=== PATIENT | female | born 2000 | race Hispanic/Latino ===

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

== ENCOUNTER 2024-07-24 19:10 | Inpatient (IN) | payer SELFPAY ==
[~2024-07-24] VITALS: Ht 167.6 cm; Wt 43.5 kg
[~2024-07-24 19:10] MED LIST: CEPH500B PO; ONDA-243 PO
[2024-07-24 19:39] LABS: APPEARANCE,URINE CLEAR (CLEAR); BILIRUBIN,URINE NEGATIVE (NEGATIVE); COLOR,URINE YELLOW (YELLOW); GLUCOSE, URINE (UA) NEGATIVE (NEGATIVE); KETONES,URINE 40 mg/dL (NEGATIVE); LEUKOCYTE ESTERASE ,URINE NEGATIVE Leu/uL (NEGATIVE); NITRATE,URINE NEGATIVE (NEGATIVE); PH,URINE 5.5 (5.0-8.0); PROTEIN,URINE 20 mg/dL (NEGATIVE); UROBILINOGEN,URINE 0.2 mg/dL (0.2-1.0)
[2024-07-24 19:48] LABS: BASOPHILS # (AUTO) 0.04 K/uL (0.00-0.20); BASOPHILS % (AUTO) 0.2 % (0.0-5.0); HEMATOCRIT 35.8 % (36-48); IMMATURE GRANULOCYTE ABSOLUTE 0.06 K/uL (0-1); LYMPHOCYTES # (AUTO) 1.1 K/uL (1.0-4.8); LYMPHOCYTES % (AUTO) 6.2 % (21.0-51.0); MEAN CORPUSCULAR HEMOGLOBIN 32.1 pg (27.0-33.0); MEAN CORPUSCULAR HGB CONC 34.9 g/dL (32.0-36.0); MEAN CORPUSCULAR VOLUME 91.8 fL (79-99); MONOCYTES # (AUTO) 0.6 K/uL (0.1-1.0); MONOCYTES % (AUTO) 3.5 % (3.0-13.0); NEUTROPHILS # (AUTO) 15.3 K/uL (1.8-7.7); NEUTROPHILS % (AUTO) 89.7 % (40.0-77.0); PLATELET COUNT (AUTO) 284 K/uL (130-400); RED CELL DISTRIBUTION WIDTH 11.7 % (11.0-15.5)
[2024-07-24 19:55] LABS: ADD UA MICROSCOPIC YES
[2024-07-24] MEDS: ondanSETRON 4MG INJ IVP ONE (20:00)
[2024-07-24] MEDS: morPHINE 4 MG SYG IVP ONE (20:00)
[2024-07-24] MEDS: 0.9%NACL 1000ML 1,000 ML IV ONE (20:09)
[2024-07-24 20:14] LABS: CREATININE 0.6 mg/dL (0.5-1.0); POTASSIUM 3.5 mmol/L (3.5-5.1)
[2024-07-24 20:40] LABS: ALBUMIN 4.2 g/dL (3.5-5.0); BILIRUBIN,DIRECT 0.1 mg/dL (0.0-0.3); BILIRUBIN,TOTAL 0.5 mg/dL (0.2-1.0); TOTAL PROTEIN, SERUM 7.8 g/dL (6.0-8.3)
[2024-07-24 20:51] LABS: BACTERIA,URINE RARE /HPF (None Seen); MUCUS,URINE MANY LPF (None Seen); RBC,URINE 26-50 /HPF (0-1); SQUAMOUS EPITHELIAL CELL,UR RARE /HPF (0-2)
--- NOTE | 2024-07-24 21:04 | ERN ---
ED Note History of Present Illness Stated Complaint: C/O ABD PAIN WITH N X V ONSET THIS AM Chief Complaint: Abdominal Pain Time Seen by MD: 19:13 Time Seen by Midlevel: 19:13 Dictation: The patient is a 24-year-old female with no past medical history who presents to the emergency department with complaints of nonbloody vomiting, diarrhea, nausea onset 11:00 a.m.. Patient also reports periumbilical abdominal pain, denies any fever. Allergies: Coded Allergies: No Known Allergies (Unverified Allergy, Unknown, 09/23/21) Home Meds Active Scripts Ondansetron (Ondansetron Odt) 4 Mg Tab.rapdis, 4 MG PO TID for n/v for 5 Days, #15 TAB Prov:JUAN ISSA HEAD REFRIGERATION ENGINEER 09/23/21 Cephalexin Monohydrate (Keflex) 500 Mg Cap, 500 MG PO BID for uti for 10 Days, #20 CAP Prov:JUAN ISSA HEAD REFRIGERATION ENGINEER 09/23/21 Past Medical History Past Medical History: No Pertinent History Additional Past Medical Hx: PANIC ATTACKS, HYPERVENTILATION Surgical History: None RN Note Reviewed/Agreed w/PFSH: Yes Review of System Dictation Constitutional: Negative for fever,chills, and weight loss Eyes: Negative for injury, pain,redness, and discharge ENT: Negative for injury,pain or swelling Cardiovascular: Negative for chest pain, palpitations, and edema Respiratory: Negative for shortness of breath, cough, and wheezing, Abdomen/GI: Negative for constipation. Positive for abdominal pain, nausea, vomiting, diarrhea Back: Negative for injury and pain : Negative for injury, bleeding and discharge MS/Extremity: Negative for injury and deformity Skin: Negative for rash, and discoloration Neuro: Negative for headache, weakness, numbness, tingling, and seizure Psych: Negative for suicide ideation, homicidal ideation, and hallucinations Initial Vital Sign VS Vital Signs Date Time Temp Pulse Resp B/P (MAP) Pulse Ox O2 Delivery O2 Flow Rate FiO2 07/24/24 19:14 97.7 89 18 102/65 100 Room Air 07/24/24 19:45 0 21 Physical Exam Dictation Vital Signs reviewed General Appearance: Alert, oriented x 3, no acute distress, well developed, nourished. Head and Face: non-traumatic. Eyes: PERRL, pink conjunctivas, eyelid no trauma, anterior chamber with arcus senilis. Ears: Pinnas intact and no signs of trauma or erythema ear canals clear and no discharge TM no erythema Nose: No discharge, no bleeding. Oropharynx: Mouth normal, tongue pink. pharynx clear,no erythema, tonsils no exudates, no abscesses noted, mucous membrane moist Neck: Supple, non-tender, no thyromegaly, no masses, no JVD, no bruits Breast:Deferred Chest:No tenderness, no crepitus, no paradoxical movement, no retractions Lungs:Clear, well-ventilated, symmetric, no rales, no wheezing, no rhonchi, no stridor, good breath sounds bilaterally Heart: Regular rate, regular rhythm, no murmur, no gallops Vascular: no peripheral edema, Abdomen: Soft, positive bowel sounds, nondistended, no guarding, Tenderness to right lower quadrant, no rebound, no masses no hepatomegaly, no splenomegaly, no Simms's sign, no hernias. Rectal: Deferred Genital: Deferred Neurological: Normal speech, motor function intact, sensory function intact Musculoskeletal: Neck nontender, full range of motion, back nontender, full range of motion, Extremities: nontender, full range of motion Skin: Color pink, dry, no turgor, no rash, no lacerations, no abrasions, no contusions. Lymphatic: Deferred Results (Laboratory/Radiology) Laboratory/Radiology Laboratory Tests Test 07/24/24 19:17 07/24/24 19:39 07/24/24 19:57 Urine Color YELLOW (YELLOW) Urine Appearance CLEAR (CLEAR) Urine pH 5.5 (5.0-8.0) Urine Specific [place] 1.031 (1.001-1.031) Urine Protein 20 mg/dL (NEGATIVE) H Urine Glucose (UA) NEGATIVE mg/dL (NEGATIVE) Urine Ketones 40 mg/dL (NEGATIVE) H Urine Occult Blood +- (TRACE) (NEGATIVE) H Urine Nitrate NEGATIVE (NEGATIVE) Urine Bilirubin NEGATIVE mg/dL (NEGATIVE) Urine Urobilinogen 0.2 mg/dL (0.2-1.0) Urine Leukocyte Esterase NEGATIVE Kristen/uL Urine RBC 26-50 /HPF (0-1) H Urine WBC 2-5 /HPF (0-1) H Urine Squamous Epithelial Cells RARE /HPF (0-2) Urine Bacteria RARE /HPF (None Seen) Urine Hyaline Casts 2-5 /LPF (0-1 /LPF) H White Blood Count 17.0 K/uL (4.8-10.8) H Red Blood Count 3.90 MIL/uL (4.00-5.50) L Hemoglobin 12.5 g/dL (12.0-16.0) Hematocrit 35.8 % (36-48) L Mean Corpuscular Volume 91.8 fL (79-99) Mean Corpuscular Hemoglobin 32.1 pg (27.0-33.0) Mean Corpuscular Hemoglobin Concent 34.9 g/dL (32.0-36.0) Red Cell Distribution Width 11.7 % (11.0-15.5) Platelet Count 284 K/uL (130-400) Mean Platelet Volume 9.0 fL (7.5-10.5) Immature Granulocyte % (Auto) 0.4 % (0-1) Neutrophils (%) (Auto) 89.7 % (40.0-77.0) H Lymphocytes (%) (Auto) 6.2 % (21.0-51.0) L Monocytes (%) (Auto) 3.5 % (3.0-13.0) Eosinophils (%) (Auto) 0.0 % (0.0-8.0) Basophils (%) (Auto) 0.2 % (0.0-5.0) Neutrophils # (Auto) 15.3 K/uL (1.8-7.7) H Lymphocytes # (Auto) 1.1 K/uL (1.0-4.8) Monocytes # (Auto) 0.6 K/uL (0.1-1.0) Eosinophils # (Auto) 0.00 K/uL (0.00-0.70) Basophils # (Auto) 0.04 K/uL (0.00-0.20) Absolute Immature Granulocyte (auto 0.06 K/uL (0-1) Nucleated Red Blood Cells 0.0 % (0.0-0.19) White Cell Morphology Comment See comments Sodium Level 137 mmol/L (136-145) Potassium Level 3.5 mmol/L (3.5-5.1) Chloride Level 100 mmol/L (101-111) L Carbon Dioxide Level 29 mmol/L (21-32) Blood Urea Nitrogen 9 mg/dL (7-18) Creatinine 0.6 mg/dL (0.5-1.0) Glomerular Filtration Rate Calc 130 mL/min (>90) Random Glucose 101 mg/dL (70-105) Total Calcium 9.0 mg/dL (8.5-10.1) Total Bilirubin 0.5 mg/dL (0.2-1.0) Direct Bilirubin 0.1 mg/dL (0.0-0.3) Aspartate Amino Transf (AST/SGOT) 14 U/L (10-37) Alanine Aminotransferase (ALT/SGPT) 14 U/L (12-78) Alkaline Phosphatase 59 U/L (50-136) Total Protein 7.8 g/dL (6.0-8.3) Albumin 4.2 g/dL (3.5-5.0) Lipase 21 U/L (16-77) Urine HCG, Qualitative NEGATIVE (NEGATIVE) REASON: suprapubic pain, r/o appendecitis. ORDERING PHYSICIAN: JAYASHREE GAN [facility] PROCEDURE: ABD WALL - US ABD LIMITED/ABD WALL US ABD LIMITED/ABD WALL HISTORY: suprapubic pain, r/o appendicitis. COMPARISON: None FINDINGS: There is a noncompressible part blind and sac demonstrated with adjacent strap stranding in the right lower quadrant. There is hypervascularity in the wall. IMPRESSION: Findings highly suggestive of acute appendicitis Labs Reviewed?: Yes ED Course ED Course Orders Procedure Category Date Status Time Vital Signs Per CPOE 07/24/24 Transmitted Routine 19:13 Saline Lock Iv CPOE 07/24/24 Transmitted 19:13 Cbc With Differential LAB 07/24/24 Complete 19:13 Lipase LAB 07/24/24 Complete 19:13 Urinalysis Profile LAB 07/24/24 Complete 19:13 Basic Metabolic Panel LAB 07/24/24 Complete 19:13 ,Urine Test LAB 07/24/24 Complete 20:00 0.9%Nacl 1000ml (Ns PHA 07/24/24 Complete 1000ml) 20:00 Morphine 4mg Syg PHA 07/24/24 Complete (Morphine 4mg Syg) 20:00 Ondansetron 4mg Inj PHA 07/24/24 Complete (Zofran 4mg Inj) 20:00 Zosyn 3.375gm+Ns 50ml PHA 07/24/24 Complete (Zosyn 3.375gm+Ns 20:30 Hepatic Function Panel LAB 07/24/24 Complete 19:39 Us Abd Limited/Abd US 07/24/24 Resulted Wall 20:56 Nothing By Mouth DIET 07/25/24 Transmitted Breakfast Current Medications Medications (Trade) Dose Ordered Sig/Rita Route PRN Reason Start Time Stop Time Status Last Admin Dose Admin Morphine Sulfate (morPHINE 4MG SYG) 4 mg ONCE ONCE IVP 07/24/24 20:00 07/24/24 20:02 DC Ondansetron HCl (zoFRAN 4MG INJ) 4 mg ONCE ONCE IVP 07/24/24 20:00 07/24/24 20:02 DC Piperacillin Sod/ Tazobactam Sod (Zosyn 3.375gm+NS 50ml) 3.375 gm STAT ONCE IV 07/24/24 20:30 07/24/24 20:31 DC 07/24/24 22:06 Sodium Chloride 1,000 ml @ 0 mls/hr ONCE ONCE IV 07/24/24 20:00 07/24/24 20:02 DC 07/24/24 20:09 Vital Signs Date Time Temp Pulse Resp B/P (MAP) Pulse Ox O2 Delivery O2 Flow Rate FiO2 07/24/24 19:45 98.4 89 22 103/62 99 Room Air* 0 21 07/24/24 19:14 97.7 89 18 102/65 100 Room Air Medical Decision Making MDM The patient is a 24-year-old female with no past medical history who presents to the emergency department with complaints of nonbloody vomiting, diarrhea, nausea onset 11:00 a.m.. Patient also reports periumbilical abdominal pain, denies any fever. CBC showed leukocytosis, no anemia, chemistry showed mild hypochloremia, normal renal function, negative lipase, urinalysis unremarkable. Patient refused CT a bdomen, states she is scared of the IV, a educated patient on the importance of CT abdomen to rule out appendicitis. Patient arrived with a continued to refused CT requested an ultrasound instead. I informed patient and family that ultrasounds or sometimes unreliable and if necessary we would have to referral back to the CT. Ultrasound revealed high suspicious for appendicitis. Case discussed with Dr. Shepherd who states to admit patient to the hospital and he will evaluate patient tomorrow possibly for an appendectomy. Differential diagnosis: Gastroenteritis, appendicitis, electrolyte imbalance, dehydration Comorbidities: None Tests considered and not ordered secondary to shared decision making include: none Previous outside records reviewed: none Risk of complication and/or morbidity or mortality of patient management: The patient meets criteria for admission. Need for emergency major/minor surgery: No There are no social concerns with this patient. I independently interpreted the tests I ordered (labs, urinalysis, etc.). I discussed the case with the hospitalist for admission. [facility] who accepts admission I discussed the case with the following specialists: Dr.Michael Shepherd who request admission to hospitalist, npo, antibiotics, and possible surgery tomorrow. Historian: pateint. I independently interpreted imaging studies and EKGs that I ordered (US, CT, XR, EKG, etc.). External chart review: none. Medical management and examination interpretation discussions were had by me with other qualified healthcare professionals as indicated for the patient's care. DX & DISP Disposition: Inpatient Departure Impression: Primary Impression: Acute appendicitis Additional Impressions: Nausea and vomiting, Diarrhea, Leukocytosis Condition: Stable Referrals: SELF,REFERRAL (PCP) I have reviewed the case, and I agree with, Diagnosis and Plan JAYASHREE GAN [facility] Jul 24, 2024 21:04
--- NOTE | 2024-07-24 21:37 | HMCIMG ---
US ABD LIMITED/ABD WALL HISTORY: suprapubic pain, r/o appendicitis. COMPARISON: None FINDINGS: There is a noncompressible part blind and sac demonstrated with adjacent strap stranding in the right lower quadrant. There is hypervascularity in the wall. IMPRESSION: Findings highly suggestive of acute appendicitis
[2024-07-24] MEDS: ZOSYN 3.375GM +NS 50ML IV ONE (22:06)
--- NOTE | 2024-07-24 23:19 | HP ---
[facility] Date of Service: Jul 24, 2024 Time of Service: 23:19 PCP: Self-referral HISTORY OF PRESENT ILLNESS: This is a 24-year-old female with no pertinent medical history presents to the ER for complaints of abdominal pain located around suprapubic which radiates to the right lower quadrant associated with nausea and vomiting x 7 episodes mostly with food contents and non bloody diarrhea x 2 and subjective fever.Patient states she took Pepto Bismul and Ibuprofen which all came out because of persistent nausea so she decided to come to the ED for evaluation.Patient has abdominal tenderness around right lower quadrant on palpation. Latest vital signs temperature 98.2, heart rate 68, blood pressure 90/45 saturation 100% on room air. Labs: WBC 17 with negative left shift of neutrophils 89.7, hemoglobin 12.5, hematocrit 35.8, platelet count 284. Chemistries unremarkable. Abdominal ultrasound result revealed suggestive of acute appendicitis. While in the ER patient received Zosyn IV, morphine 4 mg IV, Zofran 4 mg IV and 1 L NS bolus. As per ER NPMunoz, was already consulted and agreed to evaluate the patient . We will admit patient for further medical management. REVIEW OF SYSTEMS CONSTITUTIONAL: Positive fever Denies night sweats. No unintentional weight loss reported. NEUROLOGICAL: Denies headache, amaurosis fugax, motor weakness, sensory deficit, vertigo/spinning sensation, gait abnormalities, or tremors. ENT: No hearing loss, otalgia, otorrhea, rhinitis, rhinorrhea, hoarseness, or sore throat. CARDIOVASCULAR: Denies any exertional angina, dyspnea on exertion, orthopnea, paroxysmal nocturnal dyspnea, palpitations, life-threatening arrhythmias, claudication. PULMONARY: Denies any shortness of breath, cough, phlegm/sputum, hemoptysis, pleuritic chest pain. SLEEP: Denies morning headaches, daytime somnolence or napping. Denies difficulty falling asleep, staying asleep, waking from sleep. Denies knowledge of snoring. GASTROINTESTINAL: Positive abdominal pain nausea vomiting and diarrhea Denies any type of dysphagia to either liquids or solids. Denies pyrosis, early satiety, , constipation, or changes in stool consistency or caliber. Denies coffee-ground emesis, hematemesis, hematochezia, or melanotic stools. GENITOURINARY: Denies frequency, urgency, nocturia, hematuria or incontinence (Storage/Irritative symptoms.) Low urinary stream, straining to void, urinary intermittency or hesitancy, splitting of the voiding stream, terminal dribbling. ENDOCRINOLOGIC: Denies polyuria, polydipsia, polyphagia or heat/cold intolerances. HEMATOLOGIC: Denies thrombophilia/previous clots, or coagulopathy/bleeding disorders. ONCOLOGIC: Denies personal history of malignancy. DERMATOLOGIC: Denies rashes or pruritus. PSYCHIATRIC: Denies any suicidal or homicidal ideation. Denies hallucinations. PAST MEDICAL HISTORY: [No pertinent ] PAST SURGICAL HISTORY: [ Denies ] PAST SOCIAL HISTORY: [ Patient lives with parents. Patient denies alcohol tobacco and recreational drug use. Patient states she used to vape and quit one year ago. Patient states she drinks two Edita per month ] FAMILY HISTORY: [ Noncontributory ] Coded Allergies: No Known Allergies (Unverified Allergy, Unknown, 09/23/21) PHYSICAL EXAM GENERAL APPEARANCE: The patient is awake, alert, and oriented, in no acute cardiopulmonary distress. NEUROLOGICAL: Cranial nerves II-XII grossly intact. Motor is 5/5 in bilateral upper and lower extremities proximal to distal. No sensory deficits. HEENT: Face is symmetric. Pupils are equal and reactive. Extraocular movements are intact. NECK: Supple. No JVD. No thyromegaly. No submental, submandibular, pre- /postauricular, occipital or supraclavicular lymphadenopathy. CHEST: Normal chest expansion. No Telemetry. LUNGS: Absence of any rales, rhonchi or any wheezing. CARDIOVASCULAR: Regular. S1 and S2 normal. No appreciable rubs, murmurs or gallops. ABDOMEN: Positive rebound tenderness around right lower quadrant Soft and nondistended. There is voluntary guarding, or rigidity. : Deferred. No Gonzales. EXTREMITIES: Non-edematous and not cyanotic. No clubbing. Good capillary refill. SKIN: No skin breakdown. Vital Sign (Last 24 Hours) 07/24/24 19:45 Temp 98.4 Pulse 89 Resp 22 B/P (MAP) 103/62 Pulse Ox 99 O2 Delivery Room Air* O2 Flow Rate 0 FiO2 21 LABS: Laboratory: Test 07/24/24 19:57 07/24/24 19:39 07/24/24 19:17 Range/Units Urine HCG, Qualitative NEGATIVE NEGATIVE White Blood Count 17.0 H 4.8-10.8 K/uL Red Blood Count 3.90 L 4.00-5.50 MIL/uL Hemoglobin 12.5 12.0-16.0 g/dL Hematocrit 35.8 L 36-48 % Mean Corpuscular Volume 91.8 79-99 fL Mean Corpuscular Hemoglobin 32.1 27.0-33.0 pg Mean Corpuscular Hemoglobin Concent 34.9 32.0-36.0 g/dL Red Cell Distribution Width 11.7 11.0-15.5 % Platelet Count 284 130-400 K/uL Mean Platelet Volume 9.0 7.5-10.5 fL Immature Granulocyte % (Auto) 0.4 0-1 % Neutrophils (%) (Auto) 89.7 H 40.0-77.0 % Lymphocytes (%) (Auto) 6.2 L 21.0-51.0 % Monocytes (%) (Auto) 3.5 3.0-13.0 % Eosinophils (%) (Auto) 0.0 0.0-8.0 % Basophils (%) (Auto) 0.2 0.0-5.0 % Neutrophils # (Auto) 15.3 H 1.8-7.7 K/uL Lymphocytes # (Auto) 1.1 1.0-4.8 K/uL Monocytes # (Auto) 0.6 0.1-1.0 K/uL Eosinophils # (Auto) 0.00 0.00-0.70 K/uL Basophils # (Auto) 0.04 0.00-0.20 K/uL Absolute Immature Granulocyte (auto 0.06 0-1 K/uL Nucleated Red Blood Cells 0.0 0.0-0.19 % White Cell Morphology Comment See comments Sodium Level 137 136-145 mmol/L Potassium Level 3.5 3.5-5.1 mmol/L Chloride Level 100 L 101-111 mmol/L Carbon Dioxide Level 29 21-32 mmol/L Blood Urea Nitrogen 9 7-18 mg/dL Creatinine 0.6 0.5-1.0 mg/dL Glomerular Filtration Rate Calc 130 >90 mL/min Random Glucose 101 70-105 mg/dL Total Calcium 9.0 8.5-10.1 mg/dL Total Bilirubin 0.5 0.2-1.0 mg/dL Direct Bilirubin 0.1 0.0-0.3 mg/dL Aspartate Amino Transf (AST/SGOT) 14 10-37 U/L Alanine Aminotransferase (ALT/SGPT) 14 12-78 U/L Alkaline Phosphatase 59 50-136 U/L Total Protein 7.8 6.0-8.3 g/dL Albumin 4.2 3.5-5.0 g/dL Lipase 21 16-77 U/L Urine Color YELLOW YELLOW Urine Appearance CLEAR CLEAR Urine pH 5.5 5.0-8.0 Urine Specific [place] 1.031 1.001-1.031 Urine Protein 20 H NEGATIVE mg/dL Urine Glucose (UA) NEGATIVE NEGATIVE mg/dL Urine Ketones 40 H NEGATIVE mg/dL Urine Occult Blood +- (TRACE) H NEGATIVE Urine Nitrate NEGATIVE NEGATIVE Urine Bilirubin NEGATIVE NEGATIVE mg/dL Urine Urobilinogen 0.2 0.2-1.0 mg/dL Urine Leukocyte Esterase NEGATIVE NEGATIVE Kristen/uL Urine RBC 26-50 H 0-1 /HPF Urine WBC 2-5 H 0-1 /HPF Urine Squamous Epithelial Cells RARE 0-2 /HPF Urine Bacteria RARE None Seen /HPF Urine Hyaline Casts 2-5 H 0-1 /LPF /LPF DIAGNOSTICS / RADIOLOGY: [ ] ASSESSMENT: Acute appendicitis POA Suspected acute urinary tract infection POA PLAN: We will admit patient in medical surgical floor We will keep patient nothing by mouth We will start NS @ 75 ml / hr and re evaluate We will continue Zosyn IV Q 8 hours We will start on Famotidine 20 mg IV bid for GI prophylaxis We will replace electrolytes as needed per protocol We will add prn medication for fever,pain , nausea and vomiting We will seek general surgery consultation We will request labs in am Further orders to follow depending on above results Case discussed with attending physician and came up with above treatment and plan of care. ADVANCED CARE PLANNING 1. Which of the following were discussed? Hospice Care - No Therapeutic options - Yes Advance Directives - No Other discussions - 2. Discussed with who? Patient 3. Voluntary nature of this service was explained to the patient? Yes 4. Amount of time spent - ___18____ 5. Reviewed by Physician? (if this service was performed by NPP) Yes Patient seen and examined by me. Agree with note by STRAP SEWER SEE ADDITIONAL ORDERS PER CHART DISCUSSED WITH NURSING STAFF MO DUARTE SUPERVISOR [employer] Jul 24, 2024 23:19
[2024-07-24] MEDS ORDERED: PoTASSium chloRIDE 20MEQ/100ML 100 ML IV PRN (23:30)
[2024-07-24] MEDS ORDERED: ondanSETRON 4MG INJ IV PRN (23:30)
[2024-07-24] MEDS ORDERED: morPHINE 2 MG SYG IVP PRN (23:30)
[2024-07-24] MEDS: 0.9%NACL 1000ML 1,000 ML IV SCH (23:53)
[2024-07-25] VITALS (27 sets, daily range): BP systolic 96–111; BP diastolic 51–68; PULSE 63–114; RESP 12–20; TEMP 97.1–98.4; O2SAT 99–100
[2024-07-25] MEDS: ZOSYN 3.375GM+NS 50ML 50 ML IV SCH (05:04)
[2024-07-25 06:54] LABS: BASOPHILS # (AUTO) 0.04 K/uL (0.00-0.20); BASOPHILS % (AUTO) 0.4 % (0.0-5.0); EOSINOPHILS # (AUTO) 0.06 K/uL (0.00-0.70); EOSINOPHILS % (AUTO) 0.5 % (0.0-8.0); HEMATOCRIT 29.9 % (36-48); IMMATURE GRANULOCYTE ABSOLUTE 0.02 K/uL (0-1); LYMPHOCYTES # (AUTO) 2.6 K/uL (1.0-4.8); LYMPHOCYTES % (AUTO) 23.3 % (21.0-51.0); MEAN CORPUSCULAR HEMOGLOBIN 32.1 pg (27.0-33.0); MEAN CORPUSCULAR HGB CONC 34.4 g/dL (32.0-36.0); MEAN CORPUSCULAR VOLUME 93.1 fL (79-99); MONOCYTES # (AUTO) 0.7 K/uL (0.1-1.0); MONOCYTES % (AUTO) 6.3 % (3.0-13.0); NEUTROPHILS # (AUTO) 7.7 K/uL (1.8-7.7); NEUTROPHILS % (AUTO) 69.3 % (40.0-77.0); PLATELET COUNT (AUTO) 219 K/uL (130-400); RED BLOOD CELL COUNT(AUTO) 3.21 MIL/uL (4.00-5.50); RED CELL DISTRIBUTION WIDTH 11.9 % (11.0-15.5); WHITE BLOOD COUNT (AUTO) 11.1 K/uL (4.8-10.8)
[2024-07-25 07:10] LABS: ALBUMIN 3.2 g/dL (3.5-5.0); CREATININE 0.5 mg/dL (0.5-1.0); POTASSIUM 3.7 mmol/L (3.5-5.1); TOTAL PROTEIN, SERUM 6.2 g/dL (6.0-8.3)
[2024-07-25 07:12] LABS: INR 1.1 (0.85-1.15); PROTHROMBIN TIME 11.8 SEC (9.6-11.6)
[2024-07-25 07:13] LABS: PARTIAL THROMBOPLASTIN TIME 30.5 SEC (26.3-35.5)
[2024-07-25 07:41] LABS: MAGNESIUM 1.7 mg/dL (1.80-2.40)
[2024-07-25 08:04] LABS: ERYTHROCYTE SEDIMENTATION RATE 5 MM/HR (0-20)
--- NOTE | 2024-07-25 08:36 | PN ---
[facility] PROGRESS NOTE Date of Service: Jul 25, 2024 Time of Service: 08:33 SUBJECTIVE: [ ] This is a 24-year-old female was admitted 07/24/2024 presents in ED with chief complaints abdominal pain located around suprapubic which radiates to the right lower quadrant associated with nausea and vomiting x 7 episodes ER workup was consistent with acute appendicitis. 07/25/2024 patient is seen and examined with ; reviewed chart and imaging. patient is scheduled for appy this afternoon. Denied nausea/ vomiting REVIEW OF SYSTEMS CONSTITUTIONAL: Positive fever Denies night sweats. No unintentional weight loss reported. NEUROLOGICAL: Denies headache, amaurosis fugax, motor weakness, sensory deficit, vertigo/spinning sensation, gait abnormalities, or tremors. ENT: No hearing loss, otalgia, otorrhea, rhinitis, rhinorrhea, hoarseness, or sore throat. CARDIOVASCULAR: Denies any exertional angina, dyspnea on exertion, orthopnea, paroxysmal nocturnal dyspnea, palpitations, life-threatening arrhythmias, claudication. PULMONARY: Denies any shortness of breath, cough, phlegm/sputum, hemoptysis, pleuritic chest pain. SLEEP: Denies morning headaches, daytime somnolence or napping. Denies difficulty falling asleep, staying asleep, waking from sleep. Denies knowledge of snoring. GASTROINTESTINAL: Positive abdominal pain nausea vomiting and diarrhea Denies any type of dysphagia to either liquids or solids. Denies pyrosis, early satiety, , constipation, or changes in stool consistency or caliber. Denies coffee-ground emesis, hematemesis, hematochezia, or melanotic stools. GENITOURINARY: Denies frequency, urgency, nocturia, hematuria or incontinence (Storage/Irritative symptoms.) Low urinary stream, straining to void, urinary intermittency or hesitancy, splitting of the voiding stream, terminal dribbling. ENDOCRINOLOGIC: Denies polyuria, polydipsia, polyphagia or heat/cold intolerances. HEMATOLOGIC: Denies thrombophilia/previous clots, or coagulopathy/bleeding disorders. ONCOLOGIC: Denies personal history of malignancy. DERMATOLOGIC: Denies rashes or pruritus. PSYCHIATRIC: Denies any suicidal or homicidal ideation. Denies hallucinations. PHYSICAL EXAM GENERAL APPEARANCE: The patient is awake, alert, and oriented, in no acute cardiopulmonary distress. NEUROLOGICAL: Cranial nerves II-XII grossly intact. Motor is 5/5 in bilateral upper and lower extremities proximal to distal. No sensory deficits. HEENT: Face is symmetric. Pupils are equal and reactive. Extraocular movements are intact. NECK: Supple. No JVD. No thyromegaly. No submental, submandibular, pre- /postauricular, occipital or supraclavicular lymphadenopathy. CHEST: Normal chest expansion. No Telemetry. LUNGS: Absence of any rales, rhonchi or any wheezing. CARDIOVASCULAR: Regular. S1 and S2 normal. No appreciable rubs, murmurs or gallops. ABDOMEN: Positive rebound tenderness around right lower quadrant Soft and nondistended. There is voluntary guarding, or rigidity. : Deferred. No Gonzales. EXTREMITIES: Non-edematous and not cyanotic. No clubbing. Good capillary refill. SKIN: No skin breakdown. Vital Signs (last 8hr) Date Time Temp Pulse Resp B/P (MAP) Pulse Ox O2 Delivery O2 Flow Rate FiO2 07/25/24 07:00 98.2 63 18 108/56 100 Room Air 07/25/24 04:00 100 Room Air* 0 21 07/25/24 04:00 97.5 78 20 103/55 100 Room Air 07/25/24 03:31 63 16 110/56 100 Room Air* 0 21 07/25/24 02:19 87 16 89/51 100 Room Air* 0 21 LABS: Laboratory: Test 07/25/24 06:43 07/24/24 19:57 07/24/24 19:39 07/24/24 19:17 Range/Units White Blood Count 11.1 #H 4.8-10.8 K/uL Red Blood Count 3.21 L 4.00-5.50 MIL/uL Hemoglobin 10.3 L 12.0-16.0 g/dL Hematocrit 29.9 L 36-48 % Mean Corpuscular Volume 93.1 79-99 fL Mean Corpuscular Hemoglobin 32.1 27.0-33.0 pg Mean Corpuscular Hemoglobin Concent 34.4 32.0-36.0 g/dL Red Cell Distribution Width 11.9 11.0-15.5 % Platelet Count 219 130-400 K/uL Mean Platelet Volume 8.9 7.5-10.5 fL Immature Granulocyte % (Auto) 0.2 0-1 % Neutrophils (%) (Auto) 69.3 40.0-77.0 % Lymphocytes (%) (Auto) 23.3 21.0-51.0 % Monocytes (%) (Auto) 6.3 3.0-13.0 % Eosinophils (%) (Auto) 0.5 0.0-8.0 % Basophils (%) (Auto) 0.4 0.0-5.0 % Neutrophils # (Auto) 7.7 1.8-7.7 K/uL Lymphocytes # (Auto) 2.6 1.0-4.8 K/uL Monocytes # (Auto) 0.7 0.1-1.0 K/uL Eosinophils # (Auto) 0.06 0.00-0.70 K/uL Basophils # (Auto) 0.04 0.00-0.20 K/uL Absolute Immature Granulocyte (auto 0.02 0-1 K/uL Nucleated Red Blood Cells 0.0 0.0-0.19 % Erythrocyte Sedimentation Rate 5 0-20 MM/HR Prothrombin Time 11.8 H 9.6-11.6 SEC Prothromb Time International Ratio 1.10 0.85-1.15 Activated Partial Thromboplast Time 30.5 26.3-35.5 SEC Sodium Level 140 136-145 mmol/L Potassium Level 3.7 3.5-5.1 mmol/L Chloride Level 106 101-111 mmol/L Carbon Dioxide Level 27 21-32 mmol/L Blood Urea Nitrogen 6 L 7-18 mg/dL Creatinine 0.5 0.5-1.0 mg/dL Glomerular Filtration Rate Calc 136 >90 mL/min Random Glucose 84 70-105 mg/dL Total Calcium 8.5 8.5-10.1 mg/dL Magnesium Level 1.70 L 1.80-2.40 mg/dL Total Bilirubin 1.0 # 0.2-1.0 mg/dL Aspartate Amino Transf (AST/SGOT) 11 10-37 U/L Alanine Aminotransferase (ALT/SGPT) 9 L 12-78 U/L Alkaline Phosphatase 44 #L 50-136 U/L Total Protein 6.2 # 6.0-8.3 g/dL Albumin 3.2 #L 3.5-5.0 g/dL Urine HCG, Qualitative NEGATIVE NEGATIVE White Cell Morphology Comment See comments Direct Bilirubin 0.1 0.0-0.3 mg/dL Lipase 21 16-77 U/L Urine Color YELLOW YELLOW Urine Appearance CLEAR CLEAR Urine pH 5.5 5.0-8.0 Urine Specific [place] 1.031 1.001-1.031 Urine Protein 20 H NEGATIVE mg/dL Urine Glucose (UA) NEGATIVE NEGATIVE mg/dL Urine Ketones 40 H NEGATIVE mg/dL Urine Occult Blood +- (TRACE) H NEGATIVE Urine Nitrate NEGATIVE NEGATIVE Urine Bilirubin NEGATIVE NEGATIVE mg/dL Urine Urobilinogen 0.2 0.2-1.0 mg/dL Urine Leukocyte Esterase NEGATIVE NEGATIVE Kristen/uL Urine RBC 26-50 H 0-1 /HPF Urine WBC 2-5 H 0-1 /HPF Urine Squamous Epithelial Cells RARE 0-2 /HPF Urine Bacteria RARE None Seen /HPF Urine Hyaline Casts 2-5 H 0-1 /LPF /LPF Current Medications Medications (Trade) Dose Ordered Sig/Rita Route PRN Reason Start Time Stop Time Status Last Admin Dose Admin Famotidine (Pepcid 20mg Vial) 20 mg BID IV 07/25/24 09:00 08/24/24 08:59 Magnesium Sulfate 50 ml @ 0 mls/hr PROTOCOL PRN IV OTHER [SEE ORDER COMMENTS] 07/24/24 23:30 08/23/24 23:29 Morphine Sulfate (morPHINE 2MG SYG) 2 mg Q4H PRN IVP SEVERE PAIN (7-10) 07/24/24 23:30 07/31/24 23:29 Ondansetron HCl (zoFRAN 4MG INJ) 4 mg Q6H PRN IV NAUSEA/VOMITING 07/24/24 23:30 08/23/24 23:29 Piperacillin Sod/ Tazobactam Sod 50 ml @ 12.5 mls/hr Q8H IV 07/25/24 05:30 08/04/24 05:29 07/25/24 05:04 12.5 MLS/HR Potassium Chloride 100 ml @ 50 mls/hr AD PRN IV POTASSIUM PROTOCOL 07/24/24 23:30 08/23/24 23:29 Sodium Chloride 1,000 ml @ 75 mls/hr [id number] IV 07/24/24 23:30 08/23/24 23:29 07/25/24 05:01 75 MLS/HR DIAGNOSTICS / RADIOLOGY: [ ] ASSESSMENT: Acute appendicitis POA Suspected acute urinary tract infection POA PLAN: We will admit patient in medical surgical floor Consult general surgery scheduled OR today appendectomy Continues NPO titration with IV fluids @ 75 ml / hr and re evaluate continue Zosyn IV Q 8 hours Continue Famotidine 20 mg IV bid for GI prophylaxis Continue replace electrolytes as needed per protocol Continue with prn medication for fever,pain , nausea and vomiting All questions addressed Further orders to follow depending on above results Case discussed with attending physician and came up with above treatment and plan of care. ATTESTATION BY PHYSICIAN I have seen and examined the patient. I reviewed the documentation, medical decision making, and treatment plan as noted by the mid-level provider above. I agree with the findings and plan of care. RACHAEL ELLIS MD, ELIZABETH NP Jul 25, 2024 08:36
--- NOTE | 2024-07-25 09:35 | CONS ---
ELVIE VERMA Jr. 07/25/24 0935: CONSULT NOTE: Consulting physician: Dr. Garrido Consulting service: General surgery Reason for consultation: Acute appendicitis History of present illness: This is a 24-year-old female with no significant medical history that has been consulted to surgery after presenting to the hospital yesterday for abdominal pain that began yesterday accompanied with nausea and vomiting. Upon initial imaging patient refused CT due to contrast concerns and ultrasound was ordered concerning for acute appendicitis. WBCs today of 11. Hemoglobin stable vitals stable. Patient with right lower quadrant tenderness and mild rebound. Patient currently NPO. Patient on IV fluids and IV antibiotics Medical history: None reported Surgical history: None reported Review of systems: General: No Fever, No Chills, No Night Sweats, No Fatigue, No Malaise, No Appetite, No Other HEENT: No Head Aches, No Visual Changes, No Eye Pain, No Ear Pain, No Dysphasia , No Sinus Congestion, No Post Nasal Drip, No Sore Throat, No Other Pulmonary: No Dyspnea, No Cough, No Pleuritic Chest Pain, No Other Cardiovascular: No: Chest Pain, Palpitations, Orthopnea, Paroxysmal No Dyspnea, Edema, Lt Headedness, Other Gastrointestinal: No: Nausea, Vomiting, Diarrhea, Constipation, Melena, Hematochezia, Other Genitourinary: No Dysuria, No Frequency, No Incontinence, No Hematuria, No Retention, No Other Musculoskeletal: No: other, neck pain, shoulder pain, arm pain, back pain, hand pain, leg pain, foot pain Skin: No Urticaria, No Rash, No Other Neurological: No: Weakness, Numbness, Incoordination, Change in speech, Confusion, Seizures, Other Physical exam: General: Awake alert and oriented Heart: Regular rate and rhythm} Lungs: [Clear to auscultation no distress Abdomen: right lower quadrant tenderness with mild rebound Assessment: This is a 24-year-old female with a acute appendicitis Plan: This point in time patient will be taken to OR for laparoscopic appendectomy possible open by Dr. Jackman Patient to remain NPO Patient is four no surgical procedure risks and benefits and agrees to move forward with surgical intervention Patient will need to sign consent for surgical intervention today Dr. Hernandez to be updated in patient's status and nursing report any further acute events DIDIER JACKMAN MD 07/25/24 1242: CONSULT NOTE: Patient admitted with acute appendicitis. She has lower abdominal pain. White count is 17. A laparoscopic appendectomy is indicated. I had a discussion with her about the procedure and risks including bleeding, infection, recurrent appendicitis, injury to surrounding viscera and she wishes to proceed with surgery. ELVIE VERMA Jr. Jul 25, 2024 09:35 DIDIER JACKMAN MD Jul 25, 2024 12:42
[2024-07-25] MEDS: FAMOTIDINE 20MG VIAL IV SCH (09:49)
[2024-07-25] MEDS ORDERED: SUCCINYLCHOLINE CHLORIDE 20 MG/ML 10 ML VIAL ONE (10:22)
[2024-07-25] MEDS ORDERED: LIDOCAINE PF 100MG/5ML (2%) SYRINGE 5ML ONE (10:22)
[2024-07-25] MEDS ORDERED: proPOFol 10 MG/ML 20ML VIAL IV ONE (10:22)
[2024-07-25] MEDS ORDERED: dexaMETHasone SOD PHOSPHATE 10MG/ML 1ML VIAL ONE (10:23)
[2024-07-25] MEDS ORDERED: GLYCOPYRROLATE 0.2 MG/ML 5 ML VIAL ONE (10:23)
[2024-07-25] MEDS ORDERED: ondanSETRON 4MG INJ ONE (10:24)
[2024-07-25] MEDS ORDERED: NEOSTIGMINE METHYLSULFATE 1MG/ML IV ONE (10:24)
[2024-07-25] MEDS ORDERED: rocuRONium bROMide 10MG/1ML 5ML VL ONE (10:24)
[2024-07-25] MEDS ORDERED: MIDAZOLAM HCL 1 MG/ML 2ML VIAL ONE (10:24)
[2024-07-25] MEDS ORDERED: FENTanyl CITRate PF 50 MCG/1 ML 2ML VIAL ONE ×2 (10:25→11:51)
[2024-07-25] MEDS: ceFAZolin SODIUM 2 GM VIAL ONE (10:45)
[2024-07-25] MEDS: FAMOTIDINE 20MG VIAL IV ONE (11:24)
[2024-07-25] MEDS: ceFAZolin SODIUM 1 GM VIAL ONE (11:54)
[2024-07-25] MEDS: BUPIvacaine HCL/EPINEPHrine/PF 0.25% 10ML VIAL IJ ONE (12:01)
[2024-07-25] MEDS ORDERED: MEPERIDINE-PF 25 MG/ML SYG ONE (12:33)
[2024-07-25] MEDS: acetaMINOPHEN 100 ML ONE (12:34)
--- NOTE | 2024-07-25 12:44 | OP ---
Operative Note: DATE OF PROCEDURE: 07/25/24 SURGEON: DIDIER JACKMAN MD MANAGEMENT ACCOUNTANT: [[facility] [place] staff] ANESTHESIA: [General] PREOPERATIVE DIAGNOSIS: [Acute appendicitis] POSTOPERATIVE DIAGNOSIS: [Acute appendicitis] Findings: [Acute non perforated appendicitis] PROCEDURE: [Laparoscopic appendectomy] ESTIMATED BLOOD LOSS: [10 mL] OPERATIVE REPORT Date of Service: [ ] Pre-procedure diagnosis: [ ] Post-procedure diagnosis: [ ] Procedure: [ ] Surgeon: [ ] Anesthesia: [ ] Estimated blood loss: [ ] Complications: [ ] Findings: [ ] Drains: [ ] Disposition: [ ] Specimens (if any): [ ] Implants (if any): [ ] INDICATIONS FOR PROCEDURE: This is a 24-year-old female patient who presented with RLQ abdominal pain. Abdominal ultrasound showed appendicitis. Due to their symptoms, labs, clinical exam and imaging findings, a laparoscopic appendectomy was indicated. Informed consent was obtained prior to surgery. We discussed the risks of the procedure including but not limited to bleeding, wound infection, recurrent appendicitis, abscess, small bowel obstruction and injury to bowel. DESCRIPTION OF PROCEDURE: The patient was taken to the operating room and placed on the operating table in supine position. Next, general anesthesia was induced and they were intubated. A gonzalez was placed to decompress the bladder. Their abdomen was prepped and draped in a sterile fashion. Afterwards, a time-out was called. The patient's identity, procedure, preoperative antibiotics and SCDs were all confirmed. I insufflated the abdominal cavity with a Veress needle. I gained access into the intra- abdominal cavity through a 5-mm left upper quadrant incision using a 5-mm Optiview port with a 5 mm 0-degree scope. I placed 2 additional ports in the following configuration: a 12-mm port in the left abdomen, and a 5-mm port in the suprapubic area. I inspected the abdominal cavity. I saw an acutely inflammed appendix. The appendix was not perforated. I used a Asha dissector to create a window at the base of the appendix. I stapled across the base of the appendix. I used a Harmonic scalpel or LigaSure to take down the mesoappendix. The appendix was placed in a specimen bag and removed from the body. It was sent off as specimen. The staple line was inspected. No active bleeding was seen. The fascia of the 12 mm port was closed with an 1-0 Vicryl suture using a Toño-Chris closure device. The pneumoperitoneum was evacuated. Skin incisions were closed with 4-0 Monocryl. 0.25% Marcaine with epinephrine was injected into the incisions and Dermabond applied. Sponge, needle, instrument counts were accurate. The patient tolerated the procedure and was extubated and taken to recovery room in stable condition. DIDIER JACKMAN MD Jul 25, 2024 12:44
[2024-07-25] MEDS: FENTanyl CITRate PF 50 MCG/1 ML 2ML VIAL ONE (12:53)
[2024-07-25] MEDS: SIMETHICONE 80 MG TAB.CHEW PO SCH (13:00)
[2024-07-25] MEDS: traMADol HCL 50 MG TABLET PO PRN (17:29)
[2024-07-26 03:29] VITALS: BP 102/61; PULSE 86; RESP 18; TEMP 98.1
[2024-07-26 06:50] LABS: BASOPHILS # (AUTO) 0.02 K/uL (0.00-0.20); BASOPHILS % (AUTO) 0.1 % (0.0-5.0); IMMATURE GRANULOCYTE ABSOLUTE 0.05 K/uL (0-1); LYMPHOCYTES # (AUTO) 1.6 K/uL (1.0-4.8); LYMPHOCYTES % (AUTO) 10.7 % (21.0-51.0); MEAN CORPUSCULAR HEMOGLOBIN 31.5 pg (27.0-33.0); MEAN CORPUSCULAR HGB CONC 33.1 g/dL (32.0-36.0); MONOCYTES # (AUTO) 0.9 K/uL (0.1-1.0); MONOCYTES % (AUTO) 6.3 % (3.0-13.0); NEUTROPHILS % (AUTO) 82.6 % (40.0-77.0); PLATELET COUNT (AUTO) 240 K/uL (130-400); RED BLOOD CELL COUNT(AUTO) 3.37 MIL/uL (4.00-5.50); RED CELL DISTRIBUTION WIDTH 11.9 % (11.0-15.5); WHITE BLOOD COUNT (AUTO) 14.5 K/uL (4.8-10.8)
[2024-07-26 06:59] LABS: ALBUMIN 3.3 g/dL (3.5-5.0); BILIRUBIN,TOTAL 0.6 mg/dL (0.2-1.0); CREATININE 0.6 mg/dL (0.5-1.0); POTASSIUM 3.9 mmol/L (3.5-5.1); TOTAL PROTEIN, SERUM 6.5 g/dL (6.0-8.3)
[2024-07-26 07:16] VITALS: BP 105/59; PULSE 68; RESP 18; TEMP 98.3
[2024-07-26 08:00] VITALS: O2SAT 97
--- NOTE | 2024-07-26 08:47 | DS ---
Discharge Summary Hospital Course Summary: This is a 24-year-old female was admitted 07/24/2024 presents in ED with chief complaints abdominal pain located around suprapubic which radiates to the right lower quadrant associated with nausea and vomiting x 7 episodes ER workup was consistent with acute appendicitis. During the course of stay patient was seen by surgeon patient went laparoscopic appendectomy. Procedure went well. Patient is clinically stable for discharge. Postop day one recuperating well no nausea no vomiting. Bowel function present. Advised patient to follow-up with surgeon in 1-2 weeks. Avoid heavy lifting greater than 10 lb for four weeks until seen by surgeon. And keep incisions clean and dry wash with soap and water. Procedure(s): Operative Note Operative Note: DATE OF PROCEDURE: 07/25/24 SURGEON: DIDIER BUSTAMANTE MD [place] OPERATOR: [[facility] [place] staff] ANESTHESIA: [General] PREOPERATIVE DIAGNOSIS: [Acute appendicitis] POSTOPERATIVE DIAGNOSIS: [Acute appendicitis] Findings: [Acute non perforated appendicitis] PROCEDURE: [Laparoscopic appendectomy] ESTIMATED BLOOD LOSS: [10 mL] OPERATIVE REPORT Date of Service: [ ] Pre-procedure diagnosis: [ ] Post-procedure diagnosis: [ ] Procedure: [ ] Surgeon: [ ] Anesthesia: [ ] Estimated blood loss: [ ] Complications: [ ] Findings: [ ] Drains: [ ] Disposition: [ ] Specimens (if any): [ ] Implants (if any): [ ] INDICATIONS FOR PROCEDURE: This is a 24-year-old female patient who presented with RLQ abdominal pain. Abdominal ultrasound showed appendicitis. Due to their symptoms, labs, clinical exam and imaging findings, a laparoscopic appendectomy was indicated. Informed consent was obtained prior to surgery. We discussed the risks of the procedure including but not limited to bleeding, wound infection, recurrent appendicitis, abscess, small bowel obstruction and injury to bowel. DESCRIPTION OF PROCEDURE: The patient was taken to the operating room and placed on the operating table in supine position. Next, general anesthesia was induced and they were intubated. A gonzalez was placed to decompress the bladder. Their abdomen was prepped and draped in a sterile fashion. Afterwards, a time-out was called. The patient's identity, procedure, preoperative antibiotics and SCDs were all confirmed. I insufflated the abdominal cavity with a Veress needle. I gained access into the intra- abdominal cavity through a 5-mm left upper quadrant incision using a 5-mm Optiv iew port with a 5 mm 0-degree scope. I placed 2 additional ports in the following configuration: a 12-mm port in the left abdomen, and a 5-mm port in the suprapubic area. I inspected the abdominal cavity. I saw an acutely inflammed appendix. The appendix was not perforated. I used a Asha dissector to create a window at the base of the appendix. I stapled across the base of the appendix. I used a Harmonic scalpel or LigaSure to take down the mesoappendix. The appendix was placed in a specimen bag and removed from the body. It was sent off as specimen. The staple line was inspected. No active bleeding was seen. The fascia of the 12 mm port was closed with an 1-0 Vicryl suture using a Toño-Chris closure device. The pneumoperitoneum was evacuat ed. Skin incisions were closed with 4-0 Monocryl. 0.25% Marcaine with epinephrine was injected into the incisions and Dermabond applied. Sponge, needle, instrument counts were accurate. The patient tolerated the procedure and was extubated and taken to recovery room in stable condition. Assessment/Plan: Discharged Dx's: Acute appendicitis POA s/p appy Suspected acute urinary tract infection POA PLAN: ADMISSION DATE: July 24, 2024 DISCHARGE DATE: July 26, 2024 DISPOSITION: Home CONDITION: Stable WOODS WARDEN(S): General surgeon Dr. Bustamante FOLLOW UP APPOINTMENT(S): Dr. bustamante one-week PROCEDURES: Laparoscopic appendectomy] IMAGING (S) report attached to summary : Abdomen ultrasound MICROBIOLOGY: report attached to summary; none ACTIVITY: Ad bebeto HOME MEDICATIONS: none profile NEW MEDICATIONS advised patient to take [id number] Tylenol extra strength for pain TEACHING: Advised no heavy lifting greater than 10 lb until seen by surgeon, keep incisions clean and dry wash with soap and water Emergency instructions: The patient was instructed to present to the nearest Emergency Department or call 911 should their symptoms return or worsen. Home Medications: Discontinued Scripts Ondansetron (Ondansetron Odt) 4 Mg Tab.rapdis, 4 MG PO TID for n/v for 5 Days, #15 TAB Prov:JUAN ISSA [employer]ICE HELPER 09/23/21 Cephalexin Monohydrate (Keflex) 500 Mg Cap, 500 MG PO BID for uti for 10 Days, #20 CAP Prov:JUAN ISSA [employer] SERVICE HELPER 09/23/21 Time spent arranging discharge: 31-60 minutes ATTESTATION BY PHYSICIAN I have seen and examined the patient. I reviewed the documentation, medical decision making, and treatment plan as noted by the mid-level provider above. I agree with the findings and plan of care. RACHAEL ELLIS MD, ELIZABETH NP Jul 26, 2024 08:47
[2024-07-26 11:40] VITALS: BP 99/60; PULSE 68; RESP 18; TEMP 98
[2024-07-26] MEDS: MAGNESIUM 2GM PREMIX 50ML 50 ML IV PRN (13:59)
== END 2024-07-26 15:50 | disposition home or self-care (01) | DRG 398 ==
LOC: EDH 19:10 → EDHIP 19:11 → WSH 07-25 04:01
PROVIDERS: ADMIT Internal Medicine; ATTEND Internal Medicine
PROC: 0DTJ4ZZ Resection of Appendix, Percutaneous Endoscopic Approach (ICD-10-PCS; principal; 2024-07-25 11:30)
DX: K35.80 Unspecified acute appendicitis (principal); N39.0 Urinary tract infection, site not specified; Z53.20 Procedure and treatment not carried out because of patient's decision for unspecified reasons; F41.0 Panic disorder [episodic paroxysmal anxiety]; Z79.899 Other long term (current) drug therapy
CPT/HCPCS: 36415; 76705; 80048; 80053; 80076; 81001; 81025; 83690; 83735; 85025; 85610; 85651; 85730; 96365; G0378; J0330; J0690; J1100; J2003; J2175; J2250; J2270; J2405; J2543; J2704; J2710; J3010; J3475; J3490; J7030; A4215; A4216; A4600; A4649; C1713